=== PATIENT | female | born 1995 | race Caucasian/White ===

== ENCOUNTER 2023-06-23 12:26 | Emergency (ER) | payer OTHER ==
[2023-06-23 12:41] VITALS: BP 128/84; PULSE 102; RESP 18; TEMP 98.1
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
[2023-06-23 15:15] LABS: Phencyclidine Screen,Urine Not Detected (NotDetected); Urn Cannabinoid Scrn Not Detected (NotDetected)
[2023-06-23 15:16] LABS: Amphetamine Screen,Urine Detected (NotDetected); Barbiturate Screen,Urine Not Detected (NotDetected); Benzodiazepines Screen,Urine Not Detected (NotDetected); Cocaine Screen,Urine Not Detected (NotDetected); Methadone Screen, Urine Not Detected (NotDetected); Opiate Screen,Urine Not Detected (NotDetected); Oxycodone Screen, Urine Not Detected (NotDetected); Tricyclic Antidepressant,Urine Not Detected (NotDetected)
== END 2023-06-23 16:03 | disposition home or self-care (01) ==
LOC: EC 12:26
DX: Z00.8 Encounter for other general examination (principal)
CPT/HCPCS: 80306; 82075; 99285